=== PATIENT | male | born 1960 | race Caucasian/White ===

== ENCOUNTER → 2017-03-27 | Outpatient (CLI) | payer MEDICARE | LOC: HEART 5 13:22 | DX: I48.91 Unspecified atrial fibrillation (principal); I42.2 Other hypertrophic cardiomyopathy; E78.5 Hyperlipidemia, unspecified; R06.02 Shortness of breath; I49.5 Sick sinus syndrome; R06.00 Dyspnea, unspecified; I08.1 Rheumatic disorders of both mitral and tricuspid valves; I11.9 Hypertensive heart disease without heart failure | CPT/HCPCS: 93306 ==

== ENCOUNTER → 2020-10-20 | Outpatient (CLI) | payer MEDICARE, OTHER ==
[~2020-10-20] MED LIST: COUMADIN3 MG PO; GLUCOPHAGE1000 MG PO; HYDROCHLOROTHIA25 MG PO; LEVAQUIN500 MG PO; SYNTHROID175 MCG PO; TOPROL XL100 MG PO; ZESTRIL40 MG PO; ZOCOR20 MG PO
== END ==
LOC: KOH-I 14:07
DX: F17.210 Nicotine dependence, cigarettes, uncomplicated (principal)
CPT/HCPCS: 71271

== ENCOUNTER → 2021-02-07 | Outpatient (CLI) | payer MEDICARE ==
[2021-02-07 13:46] LABS: BUN/CREATININE RATIO 21 (0-10)
== END ==
LOC: LAB 09:28
PROVIDERS: Physician Assistant Surgical
DX: I42.2 Other hypertrophic cardiomyopathy (principal)
CPT/HCPCS: 36415; 80053; 93306

== ENCOUNTER → 2021-03-09 | Outpatient (CLI) | payer MEDICARE | LOC: NM 08:04 | DX: I20.9 Angina pectoris, unspecified (principal); I42.9 Cardiomyopathy, unspecified | CPT/HCPCS: 78452; 93017; A9502; J2785 ==

== ENCOUNTER → 2021-10-27 | Outpatient (CLI) | payer MEDICARE | LOC: KOH-I 10-21 14:30 | DX: F17.210 Nicotine dependence, cigarettes, uncomplicated (principal) | CPT/HCPCS: 71271 ==

== ENCOUNTER → 2021-11-18 | Outpatient (CLI) | payer MEDICARE ==
[2021-11-18 09:50] LABS: BUN/CREATININE RATIO 18 (0-10)
== END ==
LOC: CT 08:52
PROVIDERS: Family Medicine
DX: N28.9 Disorder of kidney and ureter, unspecified (principal); I51.7 Cardiomegaly
CPT/HCPCS: 36415; 74170; 80048; Q9967